=== PATIENT | male | born 1960 | race Caucasian/White ===

== ENCOUNTER 2016-07-29 05:25 | Inpatient (IN) | payer OTHER ==
[~2016-07-29] VITALS: Ht 177.8 cm; Wt 134.5 kg
[~2016-07-29 05:25] MED LIST: ASPI-231 PO; ATOR20TA PO; CLOP75TA28 PO; CYCL10TA3 PO; DULO60CA; DULO60CA PO; GAB300C PO; HYDR25TA4 PO; INSU70IN9 SC; METF-316 PO; METO-169 PO; NOR10T PO; PANTOPRAZOLE
[2016-07-29] MEDS ORDERED: DEXTROSE (50%) 50ML SYRG IV ONE (05:45)
[2016-07-29 06:17] LABS: Basophils # (auto) 0 uL; Basophils % (auto) 0.3 % (0.0-2.0); Eosinophils # (auto) 0.1 uL; Eosinophils % (auto) 0.8 % (0.0-7.0); Hematocrit 33.5 % (41.0-53.0); Hemoglobin 10.9 g/dL (13.5-17.5); Lymphocytes # (auto) 0.9 uL; Lymphocytes % (auto) 7.2 % (10.0-50.0); Mean Corpuscular Hemoglobin 28.7 pg (28.0-32.0); Mean Corpuscular Hgb Conc. 32.7 g/dL (32.0-36.0); Mean Corpuscular Volume 87.7 fL (80.0-100.0); Mean Platelet Volume 7.3 fL (7.4-10.4); Monocytes # (auto) 0.6 uL; Monocytes % (auto) 4.5 % (0.0-12.0); Neutrophils # (auto) 11.4 uL; Neutrophils % (auto) 87.2 % (37.0-80.0); Platelet Count (auto) 534 10^3/uL (140-450); Red Cell Distribution Width 14.4 % (11.6-16.0); White Blood Cell 13.1 10^3/uL (4.4-10.8)
[2016-07-29 06:34] LABS: Partial Thromboplastin Time 30.6 sec (22.64-33.71); Prothrombin Time 12.1 sec (9.37-12.3)
[2016-07-29 06:40] LABS: Albumin 2.8 g/dL (3.4-5.0); Bilirubin, Total 0.2 mg/dL (0.2-1.0); Calcium 8.4 mg/dL (8.5-10.1); Magnesium 1.6 mg/dL (1.6-2.6); Total Protein 6.9 g/dL (6.4-8.2)
[2016-07-29 06:44] LABS: INR 1.17 (0.9-1.15)
[2016-07-29] MEDS ORDERED: cloNIDine HCL 0.1 MG TAB ONE (08:30)
[2016-07-29] MEDS ORDERED: cloNIDine HCL 0.1 MG TAB PO ONE (08:45)
[2016-07-29 10:39] LABS: Urine Bilirubin Negative (Negative); Urine Blood 1+ /uL (Negative); Urine Color Yellow (Yellow); Urine Glucose 1+ mg/dL (Normal); Urine Hyaline Cast FEW /lpf (0 - 2); Urine Ketone Negative (Negative); Urine Nitrite Negative (Negative); Urine RBC 1 /hpf (0 - 3); Urine Squamous Epithelial Cell FEW /hpf (<5); Urine Urobilinogen Normal (Negative); Urine pH 6.5 (5.0-8.0)
[2016-07-29] MEDS ORDERED: CYCLOBENZAPRINE HCL 10 MG TAB PO PRN (13:30)
[2016-07-29] MEDS ORDERED: cefTRIAXone 1GM/50ML D5W 50 ML IV ONE (13:30)
[2016-07-29] MEDS ORDERED: ONDANSETRON HCL 4 MG/2 ML VIAL IV PRN (13:30)
[2016-07-29] MEDS ORDERED: MORPHINE SULF INJ 2 MG/ML SYRINGE 1ML IV PRN ×2 (13:30)
[2016-07-29] MEDS ORDERED: ACETAMINOPHEN 325 MG TAB PO PRN (13:30)
[2016-07-29] MEDS ORDERED: NITROGLYCERIN 0.4 MG SL TAB SL PRN (13:30)
[2016-07-29] MEDS ORDERED: DOCUSATE SOD 100 MG CAP PO PRN (13:30)
[2016-07-29] MEDS ORDERED: DULoxetine HCL 30 MG CAP PO ONE (13:30)
[2016-07-29] MEDS ORDERED: ZINC SULFATE 220 MG CAP PO ONE (13:45)
[2016-07-29] MEDS ORDERED: FAMOTIDINE 20 MG TAB PO ONE (13:45)
[2016-07-29] MEDS ORDERED: ASPirin-EC 81 mg tab PO ONE (13:45)
[2016-07-29] MEDS ORDERED: CLOPIDOGREL BISULFATE 75 MG TAB PO ONE (13:45)
[2016-07-29] MEDS ORDERED: MULTIPLE VITAMIN TAB PO ONE (13:45)
[2016-07-29] MEDS ORDERED: METOPROLOL SUCCINATE XL 50 MG TAB PO ONE (13:45)
[2016-07-29] MEDS ORDERED: PANTOPRAZOLE 40 MG TAB PO ONE (13:45)
[2016-07-29 13:57] LABS: B-Type Natriuretic Peptide 568.19 pg/mL (0-100); Temperature: 22.3 C (20.0-25.0)
[2016-07-29] MEDS: GABAPENTIN 300 MG CAP PO SCH ×2 (14:01→22:52)
[2016-07-29] MEDS: SODIUM CHLOR 0.9% PF (SALINE LOCK) 10ML VIAL IV SCH ×2 (14:01→22:00)
[2016-07-29] MEDS: HYDROcodone-ACET 10/325MG TAB PO PRN ×2 (14:19→21:25)
[2016-07-29] MEDS: cloNIDine HCL 0.1 MG TAB PO PRN ×2 (14:22→16:30)
[2016-07-29 15:58] VITALS: BP 170/98
[2016-07-29] MEDS ORDERED: DEXTROSE (50%) 50ML SYRG IV PRN (16:15)
[2016-07-29] MEDS: ACCU-CHEK COMFORT CURVE STRIP VI SCH ×2 (16:30→22:00)
[2016-07-29] MEDS: Boost Glucose Control 8 Ounces PO SCH ×2 (18:28→22:00)
[2016-07-29] MEDS: TEMAZEPAM 15 MG CAP PO PRN (21:25)
[2016-07-29 22:00] VITALS: BP 138/70
[2016-07-29] MEDS: INSULIN 70/30 1unit/0.01ml Susp (100units/ml) SC SCH (22:00)
[2016-07-29] MEDS: ATORVASTATIN 20 MG TAB PO SCH (22:52)
[2016-07-29] MEDS: ASCORBIC ACID 500 MG TAB PO SCH (22:53)
[2016-07-29] MEDS: FAMOTIDINE 20 MG TAB PO SCH (22:53)
[2016-07-30] VITALS (7 sets, daily range): BP systolic 101–124; BP diastolic 53–69
[2016-07-30 05:50] LABS: Albumin 2.3 g/dL (3.4-5.0); Calcium 7.6 mg/dL (8.5-10.1); Potassium 3.7 mmol/L (3.5-5.1)
[2016-07-30 05:52] LABS: BUN/Creatinine Ratio 18.9
[2016-07-30 05:54] LABS: Basophils # (auto) 0.1 uL; Basophils % (auto) 1.1 % (0.0-2.0); Eosinophils # (auto) 0.3 uL; Eosinophils % (auto) 3.8 % (0.0-7.0); Hematocrit 29.9 % (41.0-53.0); Hemoglobin 9.7 g/dL (13.5-17.5); Lymphocytes % (auto) 13.3 % (10.0-50.0); Mean Corpuscular Hemoglobin 28.9 pg (28.0-32.0); Mean Corpuscular Hgb Conc. 32.5 g/dL (32.0-36.0); Mean Platelet Volume 7.4 fL (7.4-10.4); Monocytes # (auto) 0.7 uL; Monocytes % (auto) 9.3 % (0.0-12.0); Neutrophils # (auto) 5.5 uL; Neutrophils % (auto) 72.5 % (37.0-80.0); Platelet Count (auto) 352 10^3/uL (140-450); Red Cell Distribution Width 13.2 % (11.6-16.0); White Blood Cell 7.6 10^3/uL (4.4-10.8)
[2016-07-30 05:55] LABS: Bilirubin, Total 0.2 mg/dL (0.2-1.0); Total Protein 5.6 g/dL (6.4-8.2)
[2016-07-30] MEDS: Boost Glucose Control 8 Ounces PO SCH ×2 (06:00→12:00)
[2016-07-30] MEDS: SODIUM CHLOR 0.9% PF (SALINE LOCK) 10ML VIAL IV SCH ×3 (06:07→22:27)
[2016-07-30] MEDS: GABAPENTIN 300 MG CAP PO SCH ×3 (06:07→22:27)
[2016-07-30] MEDS: ACCU-CHEK COMFORT CURVE STRIP VI SCH ×3 (06:10→20:02)
[2016-07-30] MEDS ORDERED: cefTRIAXone 1GM/50ML D5W 50 ML IV SCH (09:00)
[2016-07-30] MEDS ORDERED: MULTIPLE VITAMIN TAB PO SCH (10:00)
[2016-07-30] MEDS ORDERED: PANTOPRAZOLE 40 MG TAB PO SCH (10:00)
[2016-07-30] MEDS ORDERED: METOPROLOL SUCCINATE XL 50 MG TAB PO SCH (10:00)
[2016-07-30] MEDS ORDERED: ASPirin-EC 81 mg tab PO SCH (10:00)
[2016-07-30] MEDS ORDERED: CLOPIDOGREL BISULFATE 75 MG TAB PO SCH (10:00)
[2016-07-30] MEDS ORDERED: ZINC SULFATE 220 MG CAP PO SCH (10:00)
[2016-07-30] MEDS ORDERED: DULoxetine HCL 30 MG CAP PO SCH (10:00)
[2016-07-30] MEDS ORDERED: INSULIN 70/30 1unit/0.01ml Susp (100units/ml) SC SCH (10:00)
[2016-07-30] MEDS: ASCORBIC ACID 500 MG TAB PO SCH ×2 (10:09→22:27)
[2016-07-30] MEDS: FAMOTIDINE 20 MG TAB PO SCH ×2 (10:09→22:27)
[2016-07-30] MEDS: InsuLIN REG 1unit/0.01ml Soln (100units/ml) SC SCH ×3 (12:00→20:00)
[2016-07-30] MEDS: HYDROcodone-ACET 10/325MG TAB PO PRN (20:03)
[2016-07-30] MEDS: TEMAZEPAM 15 MG CAP PO PRN (20:03)
[2016-07-30] MEDS: INSULIN 70/30 1unit/0.01ml Susp (100units/ml) SC SCH (22:00)
[2016-07-30] MEDS: ATORVASTATIN 20 MG TAB PO SCH (22:27)
[2016-07-30] MEDS ORDERED: MUPIROCIN 2% OINT 22GM TOP ONE (23:30)
[2016-07-31] MEDS ORDERED: MUPIROCIN 2% OINT 22GM TOP SCH (10:00)
== END 2016-07-31 00:05 | disposition short-term general hospital (02) | DRG 637 ==
LOC: EDBD 05:25 → ER 05:27 → TELE 05:28 → TELE-EAST 15:20
PROVIDERS: ADMIT Internal Medicine; ATTEND Family Medicine
DX: E10.649 Type 1 diabetes mellitus with hypoglycemia without coma (principal); E43 Unspecified severe protein-calorie malnutrition; G93.41 Metabolic encephalopathy; D68.9 Coagulation defect, unspecified; I69.354 Hemiplegia and hemiparesis following cerebral infarction affecting left non-dominant side; I69.351 Hemiplegia and hemiparesis following cerebral infarction affecting right dominant side; T87.43 Infection of amputation stump, right lower extremity; Z68.41 Body mass index [BMI] 40.0-44.9, adult; E10.40 Type 1 diabetes mellitus with diabetic neuropathy, unspecified; E10.22 Type 1 diabetes mellitus with diabetic chronic kidney disease; E10.21 Type 1 diabetes mellitus with diabetic nephropathy; E10.51 Type 1 diabetes mellitus with diabetic peripheral angiopathy without gangrene; D63.8 Anemia in other chronic diseases classified elsewhere; E66.01 Morbid (severe) obesity due to excess calories; E78.5 Hyperlipidemia, unspecified; E83.51 Hypocalcemia; G40.909 Epilepsy, unspecified, not intractable, without status epilepticus; N18.4 Chronic kidney disease, stage 4 (severe); I12.9 Hypertensive chronic kidney disease with stage 1 through stage 4 chronic kidney disease, or unspecified chronic kidney disease; I25.10 Atherosclerotic heart disease of native coronary artery without angina pectoris; I73.9 Peripheral vascular disease, unspecified; Y83.5 Amputation of limb(s) as the cause of abnormal reaction of the patient, or of later complication, without mention of misadventure at the time of the procedure; Y92.89 Other specified places as the place of occurrence of the external cause; I25.2 Old myocardial infarction; Z98.890 Other specified postprocedural states; Z89.421 Acquired absence of other right toe(s); Z95.5 Presence of coronary angioplasty implant and graft; Z88.8 Allergy status to other drugs, medicaments and biological substances; Z79.02 Long term (current) use of antithrombotics/antiplatelets; Z79.82 Long term (current) use of aspirin; Z79.4 Long term (current) use of insulin
CPT/HCPCS: 36415; 71010; 74176; 80053; 81001; 82962; 83036; 83735; 83880; 84443; 84484; 85025; 85610; 85730; 87040; 87081; 87086; 93005; 96365; 96375; J0696